=== PATIENT | male | born 1965 | race Caucasian/White ===

== ENCOUNTER 2017-01-15 19:24 | Emergency (ER) | payer BC ==
[~2017-01-15 19:24] MED LIST changes: -FISH OIL1 IU PO
[2017-01-15] MEDS ORDERED: FISH OIL1 IU PO (20:03)
[2017-01-15 21:21] VITALS: BP 154/99
== END 2017-01-15 21:21 | disposition home or self-care (01) ==
LOC: ED 19:24
DX: R06.02 Shortness of breath (principal); I10 Essential (primary) hypertension; R59.1 Generalized enlarged lymph nodes; R79.1 Abnormal coagulation profile
CPT/HCPCS: Q9967

== ENCOUNTER → 2017-01-15 | Outpatient (CLI) | payer BC ==
[~2017-01-15] MED LIST: ASPIRIN ADULT L81 M3 PO; FISH OIL1 IU PO; MULTIPLE VITAMI1 TA5 PO
[2017-01-15 17:25] VITALS: BP 136/100
== END ==
LOC: AMSURD 16:48
DX: R06.02 Shortness of breath (principal); E11.9 Type 2 diabetes mellitus without complications; I10 Essential (primary) hypertension; G62.9 Polyneuropathy, unspecified

== ENCOUNTER → 2017-01-16 | Outpatient (CLI) | payer BC ==
[2017-01-15 21:21] VITALS: BP 154/99
[~2017-01-16] MED LIST changes: +FISH OIL1 IU PO
== END ==
LOC: RAD 10:29
DX: R59.0 Localized enlarged lymph nodes (principal)
CPT/HCPCS: Q9967

== ENCOUNTER → 2017-05-20 | Outpatient (CLI) | payer BC | LOC: RAD 07:52 | DX: R13.10 Dysphagia, unspecified (principal); R05 Cough ==

== ENCOUNTER → 2017-10-02 | Outpatient (CLI) | payer BC ==
[2017-10-02 19:16] LABS: EOS # 0.2 (0.04-0.40); EOS % 3.3 % (0.0-4.0); HEMATOCRIT 46.2 % (42.0-52.0); HEMOGLOBIN 15.7 g/dL (13.5-18.0); LYMPH# 1.1 (1.50-4.00); MEAN CELL VOLUME 90 fl (78-100); MEAN CORPUSCULAR HEMOGLOBIN 31 pg (27-31); MEAN CORPUSCULAR HGB CONC 34 g/dL (33-37); MEAN PLATELET VOLUME 9.6 fl (7.4-10.4); MONO # 0.6 (0.20-0.80); NEU # 3.5 (1.40-6.50); PLATELET COUNT 239 K/mm3 (130-400); RED BLOOD COUNT 5.12 M/mm3 (4.20-5.60); RED CELL DISTRIBUTION WIDTH 13.9 % (11.5-14.5); WHITE BLOOD COUNT 5.4 K/mm3 (4.8-10.8)
[2017-10-02 19:36] LABS: ALBUMIN 4.1 g/dL (3.5-5.0); BUN/CREATININE RATIO 23.1 (6.0-26.0); CALCIUM 8.9 mg/dL (8.4-10.2); POTASSIUM 3.9 mmol/L (3.6-5.0); TOTAL BILIRUBIN 0.9 mg/dL (0.2-1.3); TOTAL PROTEIN 7.5 g/dL (6.3-8.2)
== END ==
LOC: LAB 17:00
PROVIDERS: Internal Medicine Pulmonary Disease
DX: D86.9 Sarcoidosis, unspecified (principal)

== ENCOUNTER → 2017-12-17 | Outpatient (CLI) | payer BC ==
[2017-12-17 21:34] LABS: ALBUMIN 4.4 g/dL (3.5-5.0); BUN/CREATININE RATIO 23.8 (6.0-26.0); CALCIUM 9.3 mg/dL (8.4-10.2); POTASSIUM 4.5 mmol/L (3.6-5.0); TOTAL BILIRUBIN 1.2 mg/dL (0.2-1.3); TOTAL PROTEIN 8.8 g/dL (6.3-8.2)
[2017-12-17 21:44] LABS: EOS # 0.2 (0.04-0.40); EOS % 2.4 % (0.0-4.0); HEMOGLOBIN 16.8 g/dL (13.5-18.0); LYMPH# 1.4 (1.50-4.00); MEAN CELL VOLUME 91 fl (78-100); MEAN CORPUSCULAR HEMOGLOBIN 31 pg (27-31); MEAN CORPUSCULAR HGB CONC 34 g/dL (33-37); MEAN PLATELET VOLUME 9.7 fl (7.4-10.4); MONO # 0.7 (0.20-0.80); NEU # 3.9 (1.40-6.50); PLATELET COUNT 259 K/mm3 (130-400); RED BLOOD COUNT 5.41 M/mm3 (4.20-5.60); RED CELL DISTRIBUTION WIDTH 14.1 % (11.5-14.5); WHITE BLOOD COUNT 6.3 K/mm3 (4.8-10.8)
[2017-12-17 22:58] LABS: ERYTHROCYTE SEDIMENTATION RATE 4 mm/hr (0-20)
== END ==
LOC: LAB 19:07
PROVIDERS: Nurse Practitioner Family
DX: G62.9 Polyneuropathy, unspecified (principal); B35.1 Tinea unguium

== ENCOUNTER → 2017-12-24 | Outpatient (CLI) | payer BC ==
[2017-12-25 00:01] LABS: FOLATE (FOLIC ACID) >20.0 ng/mL (7.0-31.4)
== END ==
LOC: LAB 12:43
PROVIDERS: Internal Medicine
DX: R20.2 Paresthesia of skin (principal); E11.9 Type 2 diabetes mellitus without complications; Z12.5 Encounter for screening for malignant neoplasm of prostate; E78.2 Mixed hyperlipidemia

== ENCOUNTER → 2018-04-23 | Outpatient (CLI) | payer BC | LOC: RAD 10:22 | DX: R06.02 Shortness of breath (principal); D86.9 Sarcoidosis, unspecified; R59.0 Localized enlarged lymph nodes ==

== ENCOUNTER → 2018-05-06 | Outpatient (CLI) | payer BC | LOC: LAB 10:09 | DX: E11.9 Type 2 diabetes mellitus without complications (principal) ==

== ENCOUNTER → 2018-10-23 | Outpatient (CLI) | payer BC ==
[2018-10-23 10:35] LABS: EOS # 0.2 (0.04-0.40); HEMATOCRIT 45.5 % (42.0-52.0); HEMOGLOBIN 15.5 g/dL (13.5-18.0); LYMPH# 0.9 (1.50-4.00); MEAN CELL VOLUME 91 fl (78-100); MEAN CORPUSCULAR HEMOGLOBIN 31 pg (27-31); MEAN CORPUSCULAR HGB CONC 34 g/dL (33-37); MONO # 0.5 (0.20-0.80); NEU # 2.4 (1.40-6.50); PLATELET COUNT 203 K/mm3 (130-400); RED CELL DISTRIBUTION WIDTH 13.1 % (11.5-14.5)
[2018-10-23 10:40] LABS: EOS % 5.4 % (0.0-4.0)
[2018-10-23 10:46] LABS: CALCIUM 9.2 mg/dL (8.4-10.2); POTASSIUM 4.4 mmol/L (3.6-5.0); TOTAL BILIRUBIN 0.8 mg/dL (0.2-1.3); TOTAL PROTEIN 7.2 g/dL (6.3-8.2)
== END ==
LOC: LAB 10:14
DX: R91.1 Solitary pulmonary nodule (principal); Q76.5 Cervical rib; D86.9 Sarcoidosis, unspecified

== ENCOUNTER → 2018-11-10 | Outpatient (CLI) | payer BC | LOC: RAD 08:20 | DX: M19.012 Primary osteoarthritis, left shoulder (principal); M25.511 Pain in right shoulder ==

== ENCOUNTER → 2019-02-23 | Outpatient (CLI) | payer OTHER | LOC: RAD 18:23 | DX: R07.81 Pleurodynia (principal); R05 Cough ==

== ENCOUNTER → 2019-05-04 | Day surgery (SDC) | payer BC | LOC: MSO 06:23 | DX: Z12.11 Encounter for screening for malignant neoplasm of colon (principal); K63.5 Polyp of colon; E11.40 Type 2 diabetes mellitus with diabetic neuropathy, unspecified; Z79.84 Long term (current) use of oral hypoglycemic drugs; G47.33 Obstructive sleep apnea (adult) (pediatric); D86.9 Sarcoidosis, unspecified; Z79.899 Other long term (current) drug therapy; Z79.82 Long term (current) use of aspirin | CPT/HCPCS: 00811; J2704; J3010; J7030 ==

== ENCOUNTER → 2020-05-03 | Outpatient (CLI) | payer BC ==
[2020-05-03 09:19] LABS: EOS # 0.2 (0.04-0.40); EOS % 3.6 % (0.0-4.0); HEMATOCRIT 45.2 % (42.0-52.0); HEMOGLOBIN 15.3 g/dL (13.5-18.0); LYMPH# 0.9 (1.50-4.00); MEAN CELL VOLUME 89 fl (78-100); MEAN CORPUSCULAR HEMOGLOBIN 30 pg (27-31); MEAN CORPUSCULAR HGB CONC 34 g/dL (33-37); MEAN PLATELET VOLUME 9.3 fl (7.4-10.4); MONO # 0.6 (0.20-0.80); NEU # 3.3 (1.40-6.50); PLATELET COUNT 223 K/mm3 (130-400); RED BLOOD COUNT 5.07 M/mm3 (4.20-5.60); RED CELL DISTRIBUTION WIDTH 13.7 % (11.5-14.5)
[2020-05-03 09:25] LABS: POTASSIUM 4.4 mmol/L (3.5-5.1)
[2020-05-03 09:26] LABS: CALCIUM 9.4 mg/dL (8.3-10.5)
[2020-05-03 09:28] LABS: TOTAL PROTEIN 7.3 g/dL (6.4-8.3); URINE APPEARANCE CLEAR; URINE BILIRUBIN NEGATIVE (NEGATIVE); URINE BLOOD NEGATIVE (NEGATIVE); URINE COLOR YELLOW; URINE KETONE NEGATIVE (NEGATIVE); URINE LEUKOCYTE ESTERASE NEGATIVE (NEGATIVE); URINE NITRATE NEGATIVE (NEGATIVE); URINE PROTEIN(semi-quant) NEGATIVE (NEGATIVE); URINE UROBILINOGEN NORMAL (NORMAL); URINE WBC 0-1 /hpf (0-3)
[2020-05-03 09:30] LABS: TOTAL BILIRUBIN 0.8 mg/dL (0.2-1.2)
[2020-05-03 11:35] LABS: ERYTHROCYTE SEDIMENTATION RATE 6 mm/hr (0-20)
[2020-05-03 22:14] LABS: CREATININE OTHER SOURCE 66 mg/dL (())
[2020-05-03 22:29] LABS: TESTOSTERONE 421 ng/dL (221-716)
== END ==
LOC: LAB 08:49
PROVIDERS: Internal Medicine
DX: Z00.00 Encounter for general adult medical examination without abnormal findings (principal); Z12.5 Encounter for screening for malignant neoplasm of prostate; Z12.11 Encounter for screening for malignant neoplasm of colon

== ENCOUNTER → 2020-12-27 | Outpatient (CLI) | payer BC ==
[2020-12-27 11:07] LABS: BASO # 0.1 (0.02-0.10); EOS # 0.3 (0.04-0.40); HEMATOCRIT 46.7 % (42.0-52.0); HEMOGLOBIN 15.6 g/dL (13.5-18.0); MEAN CELL VOLUME 88 fl (78-100); MEAN CORPUSCULAR HEMOGLOBIN 30 pg (27-31); MEAN CORPUSCULAR HGB CONC 33 g/dL (33-37); MEAN PLATELET VOLUME 9.1 fl (7.4-10.4); MONO # 0.5 (0.20-0.80); NEU # 2.6 (1.40-6.50); PLATELET COUNT 202 K/mm3 (130-400); RED BLOOD COUNT 5.29 M/mm3 (4.20-5.60); RED CELL DISTRIBUTION WIDTH 13.3 % (11.5-14.5); WHITE BLOOD COUNT 4.4 K/mm3 (4.8-10.8)
[2020-12-27 11:22] LABS: PARTIAL THROMBOPLASTIN TIME 23.7 SECONDS (21.0-32.0); PROTHROMBIN TIME 9.8 SECONDS (9.0-12.0)
[2020-12-27 11:24] LABS: EOS % 5.9 % (0.0-4.0)
[2020-12-27 12:17] LABS: ALBUMIN 3.9 g/dL (3.5-5.0); POTASSIUM 4.5 mmol/L (3.5-5.1)
[2020-12-27 12:19] LABS: CALCIUM 9.1 mg/dL (8.3-10.5)
[2020-12-27 12:20] LABS: TOTAL PROTEIN 7.2 g/dL (6.4-8.3)
[2020-12-27 12:22] LABS: TOTAL BILIRUBIN 0.7 mg/dL (0.2-1.2)
[2020-12-27 12:26] LABS: MAGNESIUM 1.93 mg/dL (1.60-2.60)
[2020-12-27 14:08] LABS: URINE APPEARANCE CLEAR; URINE BILIRUBIN NEGATIVE (NEGATIVE); URINE BLOOD NEGATIVE (NEGATIVE); URINE COLOR YELLOW; URINE KETONE NEGATIVE (NEGATIVE); URINE LEUKOCYTE ESTERASE NEGATIVE (NEGATIVE); URINE NITRATE NEGATIVE (NEGATIVE); URINE PROTEIN(semi-quant) TRACE mg/dL (NEGATIVE); URINE UROBILINOGEN NORMAL (NORMAL); URINE WBC 0-1 /hpf (0-3)
== END ==
LOC: AMSURD 10:19
PROVIDERS: Internal Medicine
DX: Z01.818 Encounter for other preprocedural examination (principal); E11.9 Type 2 diabetes mellitus without complications; K90.9 Intestinal malabsorption, unspecified

== ENCOUNTER 2021-01-25 12:45 | Outpatient (RCR) | payer BC | END 2021-04-25 | disposition still patient (30) | LOC: PT | DX: M19.012 Primary osteoarthritis, left shoulder (principal) ==

== ENCOUNTER → 2021-05-09 | Outpatient (CLI) | payer BC ==
[2021-05-09 16:04] LABS: ALBUMIN 3.9 g/dL (3.5-5.0); POTASSIUM 4.6 mmol/L (3.5-5.1)
[2021-05-09 16:06] LABS: CALCIUM 9.7 mg/dL (8.3-10.5)
[2021-05-09 16:07] LABS: TOTAL PROTEIN 7.6 g/dL (6.4-8.3)
[2021-05-09 16:09] LABS: TOTAL BILIRUBIN 0.9 mg/dL (0.2-1.2)
== END ==
LOC: LAB 15:15
PROVIDERS: Internal Medicine
DX: E11.9 Type 2 diabetes mellitus without complications (principal)

== ENCOUNTER → 2021-05-09 | Outpatient (CLI) | payer OTHER ==
[2021-05-09 15:48] LABS: BASO # 0.02 (0.02-0.10); EOS # 0.25 (0.04-0.40); EOS % 5.2 % (0.0-4.0); HEMOGLOBIN 15.1 g/dL (13.5-18.0); LYMPH# 0.83 (1.50-4.00); MEAN CELL VOLUME 90 fl (78-100); MEAN CORPUSCULAR HEMOGLOBIN 30 pg (27-31); MEAN CORPUSCULAR HGB CONC 34 g/dL (33-37); MEAN PLATELET VOLUME 8.8 fl (7.4-10.4); MONO # 0.46 (0.20-0.80); PLATELET COUNT 191 K/mm3 (130-400); RED CELL DISTRIBUTION WIDTH 13.1 % (11.5-14.5); WHITE BLOOD COUNT 4.8 K/mm3 (4.8-10.8)
[2021-05-09 17:44] LABS: ERYTHROCYTE SEDIMENTATION RATE 31 mm/hr (0-20)
== END ==
LOC: RAD 15:04
PROVIDERS: Internal Medicine
DX: E11.628 Type 2 diabetes mellitus with other skin complications (principal); L03.031 Cellulitis of right toe

== ENCOUNTER → 2021-07-13 | Outpatient (CLI) | payer OTHER, BC ==
[2021-07-13 11:51] LABS: BASO # 0.03 K/mm3 (0.02-0.10); EOS % 4.7 % (0.0-4.0); HEMATOCRIT 48.4 % (42.0-52.0); HEMOGLOBIN 16.6 g/dL (13.5-18.0); LYMPH# 0.97 K/mm3 (1.50-4.00); MEAN CELL VOLUME 88 fl (78-100); MEAN CORPUSCULAR HEMOGLOBIN 30 pg (27-31); MEAN CORPUSCULAR HGB CONC 34 g/dL (33-37); MONO # 0.46 K/mm3 (0.20-0.80); NEU # 2.56 K/mm3 (1.40-6.50); PLATELET COUNT 221 K/mm3 (130-400); RED CELL DISTRIBUTION WIDTH 12.3 % (11.5-14.5); WHITE BLOOD COUNT 4.2 K/mm3 (4.8-10.8)
[2021-07-13 11:55] LABS: ALBUMIN 4.1 g/dL (3.5-5.0); POTASSIUM 4.5 mmol/L (3.5-5.1)
[2021-07-13 11:56] LABS: CALCIUM 9.7 mg/dL (8.3-10.5)
[2021-07-13 11:58] LABS: TOTAL PROTEIN 7.7 g/dL (6.4-8.3)
[2021-07-13 12:00] LABS: TOTAL BILIRUBIN 1.2 mg/dL (0.2-1.2)
[2021-07-13 13:16] LABS: ERYTHROCYTE SEDIMENTATION RATE 10 mm/hr (0-20)
== END ==
LOC: LAB 11:30 → RAD 11:30
PROVIDERS: Internal Medicine
DX: L03.031 Cellulitis of right toe (principal)
CPT/HCPCS: A9585

== ENCOUNTER → 2021-07-27 | Outpatient (CLI) | payer OTHER, BC ==
[2021-07-27 11:27] LABS: BASO # 0.05 K/mm3 (0.02-0.10); EOS # 0.23 K/mm3 (0.04-0.40); EOS % 4.9 % (0.0-4.0); HEMATOCRIT 47.8 % (42.0-52.0); HEMOGLOBIN 16.1 g/dL (13.5-18.0); LYMPH# 0.89 K/mm3 (1.50-4.00); MEAN CELL VOLUME 90 fl (78-100); MEAN CORPUSCULAR HEMOGLOBIN 30 pg (27-31); MEAN CORPUSCULAR HGB CONC 34 g/dL (33-37); MEAN PLATELET VOLUME 8.9 fl (7.4-10.4); MONO # 0.56 K/mm3 (0.20-0.80); NEU # 2.92 K/mm3 (1.40-6.50); PLATELET COUNT 218 K/mm3 (130-400); RED BLOOD COUNT 5.32 M/mm3 (4.20-5.60); RED CELL DISTRIBUTION WIDTH 12.7 % (11.5-14.5); WHITE BLOOD COUNT 4.7 K/mm3 (4.8-10.8)
[2021-07-27 11:36] LABS: ALBUMIN 4.4 g/dL (3.5-5.0); POTASSIUM 4.7 mmol/L (3.5-5.1)
[2021-07-27 11:37] LABS: CALCIUM 9.6 mg/dL (8.3-10.5)
[2021-07-27 11:38] LABS: TOTAL PROTEIN 7.8 g/dL (6.4-8.3)
[2021-07-27 11:41] LABS: URINE APPEARANCE CLEAR; URINE COLOR YELLOW
[2021-07-27 11:42] LABS: URINE BILIRUBIN NEGATIVE (NEGATIVE); URINE BLOOD NEGATIVE (NEGATIVE); URINE KETONE NEGATIVE (NEGATIVE); URINE LEUKOCYTE ESTERASE NEGATIVE (NEGATIVE); URINE NITRATE NEGATIVE (NEGATIVE); URINE PROTEIN(semi-quant) NEGATIVE (NEGATIVE); URINE UROBILINOGEN NORMAL (NORMAL); URINE WBC 0-1 /hpf (0-3)
[2021-07-27 11:45] LABS: MAGNESIUM 1.88 mg/dL (1.60-2.60)
== END ==
LOC: LAB 11:05
PROVIDERS: Internal Medicine
DX: Z01.818 Encounter for other preprocedural examination (principal)

== ENCOUNTER → 2021-09-18 | Outpatient (CLI) | payer BC | LOC: LAB 11:23 | DX: U07.1 COVID-19 (principal) ==

== ENCOUNTER → 2022-03-01 | Outpatient (CLI) | payer BC ==
[2022-03-01 09:02] LABS: URINE WBC 0 /hpf (0-3)
[2022-03-01 09:05] LABS: BASO # 0.04 K/mm3 (0.02-0.10); EOS # 0.21 K/mm3 (0.04-0.40); EOS % 4.7 % (0.0-4.0); HEMATOCRIT 45.8 % (42.0-52.0); HEMOGLOBIN 15.8 g/dL (13.5-18.0); LYMPH# 0.91 K/mm3 (1.50-4.00); MEAN CELL VOLUME 88 fl (78-100); MEAN CORPUSCULAR HEMOGLOBIN 30 pg (27-31); MEAN CORPUSCULAR HGB CONC 35 g/dL (33-37); MEAN PLATELET VOLUME 9.2 fl (7.4-10.4); MONO # 0.55 K/mm3 (0.20-0.80); NEU # 2.73 K/mm3 (1.40-6.50); PLATELET COUNT 196 K/mm3 (130-400); WHITE BLOOD COUNT 4.5 K/mm3 (4.8-10.8)
[2022-03-01 09:13] LABS: ALBUMIN 4.2 g/dL (3.5-5.0); POTASSIUM 4.4 mmol/L (3.5-5.1)
[2022-03-01 09:14] LABS: CALCIUM 9.7 mg/dL (8.3-10.5)
[2022-03-01 09:16] LABS: TOTAL PROTEIN 7.5 g/dL (6.4-8.3)
[2022-03-01 09:18] LABS: TOTAL BILIRUBIN 1.1 mg/dL (0.2-1.2)
[2022-03-01 09:22] LABS: MAGNESIUM 1.91 mg/dL (1.60-2.60)
[2022-03-01 10:02] LABS: URINE APPEARANCE CLEAR; URINE COLOR YELLOW; URINE KETONE NEGATIVE (NEGATIVE); URINE PROTEIN(semi-quant) NEGATIVE (NEGATIVE)
[2022-03-01 10:03] LABS: URINE BILIRUBIN NEGATIVE (NEGATIVE); URINE BLOOD NEGATIVE (NEGATIVE); URINE LEUKOCYTE ESTERASE NEGATIVE (NEGATIVE); URINE NITRATE NEGATIVE (NEGATIVE); URINE UROBILINOGEN NORMAL (NORMAL)
[2022-03-01 12:19] LABS: ERYTHROCYTE SEDIMENTATION RATE 7 mm/hr (0-20)
== END ==
LOC: LAB 08:37
PROVIDERS: Internal Medicine
DX: Z00.00 Encounter for general adult medical examination without abnormal findings (principal); Z12.5 Encounter for screening for malignant neoplasm of prostate; Z12.11 Encounter for screening for malignant neoplasm of colon; U07.1 COVID-19

== ENCOUNTER → 2022-07-26 | Outpatient (CLI) | payer BC | LOC: LAB 09:48 → RAD 09:48 | DX: M19.072 Primary osteoarthritis, left ankle and foot (principal); S99.922A Unspecified injury of left foot, initial encounter; E13.621 Other specified diabetes mellitus with foot ulcer ==

== ENCOUNTER → 2022-10-01 | Outpatient (CLI) | payer BC | LOC: RAD 18:02 | DX: R05.9 Cough, unspecified (principal); R06.02 Shortness of breath ==

== ENCOUNTER 2024-03-19 07:52 | Outpatient (RCR) | payer BC | END 2024-04-08 | disposition home or self-care (01) | LOC: PT | DX: M25.551 Pain in right hip (principal) ==

== ENCOUNTER → 2024-06-04 | Outpatient (CLI) | payer OTHER ==
[~2024-06-04] MED LIST changes: +ALBUTEROL SULF6.7 GM IH; +CIPRO500 M1 PO; +GLUCOTROL 5M5 MG/TAB PO; +IPRATROPIUM BROM3 M1 IH; +METFORMIN ER500 MG PO; +MORGIDOX 1X100100 MG PO; +NEURONTIN300 MG/CAP PO; +TEMOVATE OINT30 GM TOP; +VITAMIN D3125 MC4 PO
== END ==
LOC: LAB 11:48
DX: S91.332D Puncture wound without foreign body, left foot, subsequent encounter (principal); X58.XXXD Exposure to other specified factors, subsequent encounter

== ENCOUNTER 2024-06-05 13:04 | Outpatient (RCR) | payer OTHER ==
[~2024-06-05] VITALS: Ht 175.3 cm; Wt 106.8 kg
[~2024-06-05 13:04] MED LIST changes: -ALBUTEROL SULF6.7 GM IH; -CIPRO500 M1 PO; -GLUCOTROL 5M5 MG/TAB PO; -IPRATROPIUM BROM3 M1 IH; -METFORMIN ER500 MG PO; -MORGIDOX 1X100100 MG PO; -NEURONTIN300 MG/CAP PO; -TEMOVATE OINT30 GM TOP; -VITAMIN D3125 MC4 PO
[2024-06-05 13:11] VITALS: BP 138/87
[2024-06-05] MEDS ORDERED: CIPRO500 M1 PO (14:00)
[2024-06-05] MEDS ORDERED: ALBUTEROL SULF6.7 GM IH (14:07)
[2024-06-05] MEDS ORDERED: TEMOVATE OINT30 GM TOP (14:08)
[2024-06-05] MEDS ORDERED: MORGIDOX 1X100100 MG PO (14:10)
[2024-06-05] MEDS ORDERED: GLUCOTROL 5M5 MG/TAB PO (14:11)
[2024-06-05] MEDS ORDERED: NEURONTIN300 MG/CAP PO (14:11)
[2024-06-05] MEDS ORDERED: IPRATROPIUM BROM3 M1 IH (14:12)
[2024-06-05] MEDS ORDERED: METFORMIN ER500 MG PO (14:12)
[2024-06-05] MEDS ORDERED: VITAMIN D3125 MC4 PO (14:14)
[2024-07-24] MEDS ORDERED: CLINDAMYCIN 300MG PO (17:10)
== END 2024-06-08 | disposition home or self-care (01) ==
LOC: AMSURD
DX: S91.332D Puncture wound without foreign body, left foot, subsequent encounter (principal)
CPT/HCPCS: 18895; 18897; A6021

== ENCOUNTER → 2024-06-22 | Outpatient (CLI) | payer OTHER ==
[~2024-06-22] MED LIST changes: +ALBUTEROL SULF6.7 GM IH; +CIPRO500 M1 PO; +GLUCOTROL 5M5 MG/TAB PO; +IPRATROPIUM BROM3 M1 IH; +METFORMIN ER500 MG PO; +MORGIDOX 1X100100 MG PO; +NEURONTIN300 MG/CAP PO; +TEMOVATE OINT30 GM TOP; +VITAMIN D3125 MC4 PO
== END ==
LOC: LAB 18:10
DX: S91.332A Puncture wound without foreign body, left foot, initial encounter (principal)

== ENCOUNTER → 2024-06-26 | Outpatient (CLI) | payer OTHER ==
[~2024-06-26] MED LIST changes: +Gadoterate 20 ML VIAL IV ONE; +MELOXICAM15 MG PO
== END ==
LOC: RAD 08:48
DX: M19.072 Primary osteoarthritis, left ankle and foot (principal); S91.332A Puncture wound without foreign body, left foot, initial encounter
CPT/HCPCS: A9575

== ENCOUNTER 2024-07-07 09:23 | Outpatient (RCR) | payer OTHER ==
[2024-06-09 07:58] VITALS: BP 129/94
--- NOTE | 2024-06-09 09:12 | NUR ---
PT ARRIVES AMBULATORY FOR OP WOUND CARE TO LEFT FOOT. THICK, STICKY DARK RED DRAINAGE NOTED ON DRESSING AND AT BASE OF LEFT 5TH TOE. SKIN BETWEEN 4TH AND 5TH TOES IS WHITE - STATES THERE WAS A "POCKET OF PUS" IN THERE OVER THE WEEKEND. MEASUREMENTS AND PICTURES TAKEN TODAY. SEE PROVIDER NOTE FROM Stacie GONZALEZ APRN
[2024-06-15 10:55] VITALS: BP 155/94
--- NOTE | 2024-06-15 11:49 | NUR ---
PT ARRIVES AMBULATORY FOR WOUND CARE TO LEFT FOOT. SIMONE PROCEDURE WELL. DENIES PAIN. STATES OVERALL THE PAIN HAS BEEN LESS. ABLE TO BE UP AND ABOUT A LITTLE MORE. SEE PROVIDER NOTE FROM Stacie GONZALEZ APRN. PICTURES AND MEASUREMENTS TAKEN TODAY.
--- NOTE | 2024-06-17 08:00 | NUR ---
PATIENT AMBULATORY TO ROOM 5 FOR WOUND CARE TO LEFT FOOT ULCER. DRESSING REMOVED, MACERATED SKIN SURROUNDING ULCER NOTED. AREA CLEANSED WITH HEBICLENSE AND STERILE WATER. MEASUREMENTS AND PHOTOS TAKEN. SEE LIBERTY GONZALEZ APRN NOTES FOR DETAILS. OFFLOADING AND POSTOP SHOE FITTED AND PLACED ON PATIENT. SCHEDULED FOR INCREASED DRESSING CHANGES PER HUMAN RELATIONS TEACHER RECOMMENDATIONS.
[2024-06-17 08:09] VITALS: BP 158/92
[2024-06-22 16:55] VITALS: BP 152/90
--- NOTE | 2024-06-22 18:27 | NUR ---
PT'S CALLED THIS AFTERNOON STATING THAT VANNESSA'S FOOT WAS MORE RED AGAIN AND HAS "NASTY DRAINAGE". INSTRUCTED THEM TO COME IN TO BE SEEN SINCE NEXT APPT WAS NOT SCHEDULED UNTIL 06/24. ARRIVED AMBULATORY WEARING SURGICAL SHOE ON LEFT FOOT. NOTED DRAINAGE ON PADDING IN SURGICAL SHOE. REMOVED OLD PADDING AND REPLACED WITH NEW PADDING. CUT OUT A HOLE WHERE HIS WOUND WOULD GO, TO OFFLOAD PRESSURE ON WOUND. THERE WAS MOD AMOUNT DARK BROWN THICK DRAINAGE ON OLD DRESSING. CULTURED THAT DRAINAGE PER DR CHEN'S ORDER. CLEANED WOUND, AND BETWEEN TOES AND ON TOP AND BOTTOM LEFT FOOT WITH HIBICLENS AND STERILE WATER USING A DEBRISOFT LOLLY. IRRIGATED WOUND WITH STERILE WATER AND THEN DRIED WOUND AND FOOT WELL WITH 4X4'S. EDGES OF WOUND ARE SLIGHTLY MACERATED, BUT BETTER THAN IT HAS BEEN, NOW THAT DRESSING IS BEING CHANGED DAILY AT HOME. SKIN PREP APPLIED AROUND WOUND EDGES AND THEN PAINTED WOUND BED AND MACERATED EDGES WITH BETADINE. WOUND DEPTH IS STILL 1CM WITH NO NEW TUNNELLING AREAS. WOUND BED IS PINK WITH MINIMAL AMOUNT OF SLOUGH NOTED AFTER CLEANING. PACKED WOUND LOOSELY WITH 1/4 INCH IODOFORM GAUZE AND COVERED WITH 2 LAYERS OF AQUACEL AG. ALSO PLACED A STRIP OF AQUACEL AG BETWEEN 4TH AND 5TH TOES. SECURED DRESSING WITH PAPER TAPE. DR CHEN HERE TO SEE PATIENT IN Stacie GONZALEZ'S ABSENCE. WOUND CULTURE DONE AND AN ORDER WAS PLACED FOR AN MRI TO CHECK FOR OSTEOMYELITIS. PT WILL GET THAT SCHEDULED WITH RADIOLOGY TOMORROW WHEN THEY ARE OPEN. INSTRUCTED PATIENT TO STAY OFF FOOT MUCH HE CAN, AND TO MAYBE WEAR A SOCK WHEN HE GOES OUTSIDE TO KEEP FOOT CLEAN. FAMILY WILL CONTINUE TO DO DRESSING CHANGES DAILY AT HOME AND WILL COME BACK ON 06/24 SCHEDULED. VERBALIZED UNDERSTANDING. DR. CHEN CALLED IN SCRIPTS FOR CIPRO AND CLINDAMYCIN. PT PICKING THESE UP AT [facility] ON HIS WAY HOME.
[2024-06-24 11:23] VITALS: BP 157/95
--- NOTE | 2024-06-24 15:00 | NUR ---
Utilization review. Authorization approved for MRI. Lizzette Verdin adjuster arbitrator. Sent Provider and Nursing Notes
[2024-06-26 10:08] VITALS: BP 153/96
--- NOTE | 2024-06-26 10:44 | NUR ---
wound care on Lt foot today. see provider note from vinay harris aprn.
[2024-06-30 08:58] VITALS: BP 148/88
--- NOTE | 2024-06-30 09:48 | NUR ---
PT ARRIVES AMBULATORY WITH FOR OUTPT WOUND CARE TO LEFT FOOT WOUND. OLD DRESSING REMOVED. WOUND DEBRIDED BY Stacie GONZALEZ APRN. CLEANED WITH HIBICLENS USING DEBRISOFT LOLLY. JET LAVAGED WITH STERILE WATER. DRIED WELL. TRIAD CREAM APPLIED AROUND WOUND. DANY COLLAGEN INSERTED INTO WOUND BED. COVERED WITH HYDROFERA BLUE READY, AQUACEL EXTRA AND WRAPPED WITH SOFT ROLL SHELDON. CONTINUES TO WEAR SURGICAL SHOE ON LEFT FOOT. Stacie GONZALEZ CALLING IN SCRIPT FOR A KNEE SCOOTER FOR MOBILITY AND LESS PRESSURE ON LEFT FOOT. PT REMAINS OFF WORK AT THIS TIME.
[2024-07-03 09:02] VITALS: BP 157/94
--- NOTE | 2024-07-03 09:40 | NUR ---
See provider note from Stacie Barron APRN
--- NOTE | 2024-07-03 10:02 | NUR ---
PT HERE FOR OP WOUND CARE. WOUND CLEANED WITH HIBICLENS AND STERILE WATER USING DEBRISOFT LOLLY AND JET LAVAGE. DRIED WELL. ATRACTAIN CREAM APPLIED TO DRY SKIN AROUND WOUND ON LEFT FOOT. SKIN PREPPED AROUND WOUND EDGES. PACKED WOUND WITH COLLAGEN DANY. APPLIED HYDROFERA BLUE READY OVER WOUND AND SECURED WITH SOFT ROLL SHELDON AND TUBIGRIP E. SURGICAL SHOE PADDING REPLACED WITH HOLE CUTOUT FOR WOUND AREA. KNEE SCOOTER PROVIDED TO PT A LOANER FROM PHYSICAL THERAPY DEPT. WILL TRY IT OUT OVER THE WEEKEND. ADJUSTED THE HEIGHT OF SCOOTER TO FIT PATIENT AND OBSERVED HIM ROLLING AROUND IN THE [place] TO MAKE SURE HE IS SAFE TO OPERATE THE SCOOTER. PRESENT AND AWARE OF PT INSTRUCTIONS ON DRESSING CHANGE AND WEIGHT BEARING LIMITATIONS. WILL RETURN ON saturday FOR WOUND CARE
[~2024-07-07] VITALS: Ht 175.3 cm; Wt 106.8 kg
[~2024-07-07 09:23] MED LIST changes: -Gadoterate 20 ML VIAL IV ONE; -MELOXICAM15 MG PO
[2024-07-07 09:42] VITALS: BP 143/96
--- NOTE | 2024-07-07 10:09 | NUR ---
PT HERE FOR OP WOUND CARE TO LEFT FOOT. SEE PROVIDER NOTE FROM Stacie GONZALEZ APRN
[2024-07-07] MEDS ORDERED: MELOXICAM15 MG PO (10:27)
[2024-07-24] MEDS ORDERED: CLINDAMYCIN 300MG PO (17:10)
== END 2024-07-09 | disposition home or self-care (01) ==
LOC: AMSURD
DX: S91.332D Puncture wound without foreign body, left foot, subsequent encounter (principal); X58.XXXD Exposure to other specified factors, subsequent encounter
CPT/HCPCS: 18878; 18893; 18895; 18897; 19899; A6021; A6197; A6240

== ENCOUNTER → 2024-07-10 | Outpatient (CLI) | payer OTHER ==
[~2024-07-10] VITALS: Ht 175.3 cm; Wt 106.8 kg
[~2024-07-10] MED LIST changes: +MELOXICAM15 MG PO
[2024-07-10 12:40] VITALS: BP 149/90
--- NOTE | 2024-07-10 13:13 | NUR ---
PT ARRIVED AMBULATORY FOR OUTPT WOUND CARE TO LEFT FOOT. WOUND DEBRIDED AND CLEANED BY Stacie GONZALEZ APRN. MIN AMT SEROSANGUINOUS DRAINAGE NOTED . WOUND PACKED WITH DANY COLLAGEN, DANII WOUND SKIN PREPPED AND THEN APPLIED TRIAD CREAM. COVERED WITH HYDROFERA BLUE READY AND WRAPPED WITH SOFT ROLL SHELDON. SEE PROVIDER NOTE FROM Stacie GONZALEZ APRN
== END ==
LOC: AMSURD 12:26
DX: S91.332D Puncture wound without foreign body, left foot, subsequent encounter (principal); X58.XXXD Exposure to other specified factors, subsequent encounter
CPT/HCPCS: 18897

== ENCOUNTER → 2024-07-24 | Outpatient (CLI) | payer OTHER ==
[~2024-07-24] VITALS: Ht 175.3 cm; Wt 106.8 kg
[~2024-07-24] MED LIST changes: +CLINDAMYCIN 300MG PO
[2024-07-24 16:24] VITALS: BP 140/81
== END ==
LOC: AMSURD 10:01 → WOUND 10:01
DX: S91.332D Puncture wound without foreign body, left foot, subsequent encounter (principal); X58.XXXD Exposure to other specified factors, subsequent encounter

== ENCOUNTER → 2024-07-28 | Outpatient (CLI) | payer OTHER ==
[~2024-07-28] VITALS: Ht 175.3 cm; Wt 106.8 kg
[2024-07-28 15:01] VITALS: BP 153/85
== END ==
LOC: WOUND 14:55
DX: S91.332D Puncture wound without foreign body, left foot, subsequent encounter (principal)
CPT/HCPCS: 18895; 18897; A6021

== ENCOUNTER → 2024-07-31 | Outpatient (CLI) | payer OTHER ==
[~2024-07-31] VITALS: Ht 175.3 cm; Wt 106.8 kg
[2024-07-31 15:30] VITALS: BP 139/86
== END ==
LOC: WOUND 14:57
DX: S91.332D Puncture wound without foreign body, left foot, subsequent encounter (principal)
CPT/HCPCS: 18895; A6021

== ENCOUNTER → 2024-08-04 | Outpatient (CLI) | payer OTHER ==
[~2024-08-04] VITALS: Ht 175.3 cm; Wt 106.8 kg
[2024-08-04 16:21] VITALS: BP 141/83
== END ==
LOC: WOUND 16:00
DX: S91.332D Puncture wound without foreign body, left foot, subsequent encounter (principal)

== ENCOUNTER → 2024-08-07 | Outpatient (CLI) | payer OTHER ==
[~2024-08-07] VITALS: Ht 175.3 cm; Wt 106.8 kg
[2024-08-07 08:11] VITALS: BP 140/83
--- NOTE | 2024-08-07 08:34 | NUR ---
SEE PROVIDER NOTE FROM Stacie GONZALEZ APRN
== END ==
LOC: WOUND 08:03
DX: S91.332D Puncture wound without foreign body, left foot, subsequent encounter (principal)

== ENCOUNTER → 2024-08-10 | Outpatient (CLI) | payer OTHER | LOC: RAD 15:53 | DX: S91.332A Puncture wound without foreign body, left foot, initial encounter (principal) ==

== ENCOUNTER → 2024-08-11 | Outpatient (CLI) | payer OTHER ==
[~2024-08-11] VITALS: Ht 175.3 cm; Wt 106.8 kg
[~2024-08-11] MED LIST changes: +VIBRAMYCIN HYC100 MG PO; +oxyCODONE/Acetaminophen 5-325 MG TAB PO ONE
[2024-08-11 16:19] VITALS: BP 142/86
--- NOTE | 2024-08-11 17:16 | NUR ---
SEE PROVIDER NOTE FROM Stacie GONZALEZ APRN
== END ==
LOC: WOUND 15:59
DX: S91.332D Puncture wound without foreign body, left foot, subsequent encounter (principal)
CPT/HCPCS: 18893; 18897; 19062; 19899; A6197; A6210

== ENCOUNTER → 2024-08-14 | Outpatient (CLI) | payer OTHER ==
[~2024-08-14] VITALS: Ht 175.3 cm; Wt 106.8 kg
[~2024-08-14] MED LIST changes: -oxyCODONE/Acetaminophen 5-325 MG TAB PO ONE
[2024-08-14 13:26] VITALS: BP 156/79
--- NOTE | 2024-08-14 13:30 | NUR ---
SEE PROVIDER NOTE FROM Stacie GONZALEZ APRN
== END ==
LOC: ED 12:46 → EDSTATUS 13:09 → WOUND 13:09
DX: S91.332D Puncture wound without foreign body, left foot, subsequent encounter (principal)
CPT/HCPCS: A6021; A6210

== ENCOUNTER → 2024-08-17 | Outpatient (CLI) | payer BC ==
[2024-08-17 11:29] LABS: URINE APPEARANCE CLEAR (CLEAR); URINE COLOR YELLOW (YELLOW)
[2024-08-17 11:30] LABS: URINE BILIRUBIN NEGATIVE (NEGATIVE); URINE BLOOD NEGATIVE (NEGATIVE); URINE GLUCOSE NEGATIVE (NEGATIVE); URINE KETONE NEGATIVE (NEGATIVE); URINE LEUKOCYTE ESTERASE NEGATIVE (NEGATIVE); URINE MUCUS PRESENT (NOT PRESENT); URINE NITRATE NEGATIVE (NEGATIVE); URINE PROTEIN(semi-quant) TRACE (NEGATIVE); URINE WBC 0-1 /hpf (0-3)
[2024-08-17 12:14] LABS: ALBUMIN 4.1 g/dL (3.5-5.0)
[2024-08-17 12:16] LABS: CALCIUM 9.6 mg/dL (8.3-10.5)
[2024-08-17 12:17] LABS: TOTAL PROTEIN 7.3 g/dL (6.4-8.3)
[2024-08-17 12:19] LABS: TOTAL BILIRUBIN 1.1 mg/dL (0.2-1.2)
== END ==
LOC: LAB 10:54
PROVIDERS: Internal Medicine
DX: K90.9 Intestinal malabsorption, unspecified (principal); E78.2 Mixed hyperlipidemia; E11.9 Type 2 diabetes mellitus without complications; L03.116 Cellulitis of left lower limb

== ENCOUNTER → 2024-08-18 | Outpatient (CLI) | payer OTHER ==
[~2024-08-18] VITALS: Ht 175.3 cm; Wt 106.8 kg
[2024-08-18 10:51] VITALS: BP 136/86
--- NOTE | 2024-08-18 11:06 | NUR ---
PT HERE FOR WOUND CARE TO LEFT FOOT. CULTURE REPORTS BACK AND REVIEWED BY Stacie GONZALEZ APRN. PT SAW DR MELENDEZ YESTERDAY AND WAS STARTED ON CIPRO 500MG BID X14 DAYS AND DOXY 100MG BID X [address] MELENDEZ ALSO STARTED HIM BACK ON A LONG ACTING INSULIN. PT IS SCHEDULED FOR AN MRI OF LEFT FOOT IN [place] TODAY AT 1300. SEE PROVIDER NOTE FROM Stacie GONZALEZ APRN.
== END ==
LOC: WOUND 08-14 09:02
DX: S91.332D Puncture wound without foreign body, left foot, subsequent encounter (principal)
CPT/HCPCS: 19063; A6210

== ENCOUNTER → 2024-08-21 | Outpatient (CLI) | payer OTHER ==
[~2024-08-21] VITALS: Ht 175.3 cm; Wt 106.8 kg
[2024-08-21 08:41] VITALS: BP 115/74
--- NOTE | 2024-08-21 09:15 | NUR ---
see provider note from vinay harris aprn
== END ==
LOC: WOUND 08:20
DX: S91.332D Puncture wound without foreign body, left foot, subsequent encounter (principal)
CPT/HCPCS: 18897

== ENCOUNTER → 2024-08-25 | Outpatient (CLI) | payer OTHER ==
[~2024-08-25] VITALS: Ht 175.3 cm; Wt 106.8 kg
[2024-08-25 08:57] VITALS: BP 143/84
--- NOTE | 2024-08-25 09:15 | NUR ---
SEE PROVIDER NOTE FROM Stacie GONZALEZ APRN
== END ==
LOC: WOUND 08:35
DX: S91.332D Puncture wound without foreign body, left foot, subsequent encounter (principal)
CPT/HCPCS: 18897

== ENCOUNTER → 2024-09-22 | Outpatient (CLI) | payer OTHER | LOC: LAB 13:00 | DX: S91.002A Unspecified open wound, left ankle, initial encounter (principal); X58.XXXA Exposure to other specified factors, initial encounter ==